=== PATIENT | male | born 1995 | race Caucasian/White ===

== ENCOUNTER 2019-12-27 13:11 | Emergency (ER) | payer BC ==
[~2019-12-27] VITALS: Ht 175.3 cm; Wt 92.9 kg
[2019-12-27] MEDS ORDERED: KETOROLAC 60MG 2ML VIAL IM ONE (14:45)
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
[2019-12-27] MEDS ORDERED: AUGM875T28 PO (15:53)
[2019-12-27 16:02] VITALS: BP 130/85
== END 2019-12-27 16:07 | disposition home or self-care (01) ==
LOC: M ED 13:11
DX: S09.93XA Unspecified injury of face, initial encounter (principal); V91.83XA Other injury due to other accident to other powered watercraft, initial encounter; Y92.9 Unspecified place or not applicable; Y93.9 Activity, unspecified; Y99.9 Unspecified external cause status
CPT/HCPCS: 70486; 96372; 99283; J1885